=== PATIENT | male | born 1965 | race Caucasian/White ===

== ENCOUNTER → 2022-10-15 | Outpatient (CLI) | payer OTHER | END | disposition home or self-care (01) | LOC: MRI 10-09 10:00 | PROVIDERS: ATTEND Specialist | DX: S66.118A Strain of flexor muscle, fascia and tendon of other finger at wrist and hand level, initial encounter (principal); M77.12 Lateral epicondylitis, left elbow; M70.31 Other bursitis of elbow, right elbow; X58.XXXA Exposure to other specified factors, initial encounter; Y93.89 Activity, other specified; Y92.89 Other specified places as the place of occurrence of the external cause; Y99.8 Other external cause status ==